=== PATIENT | female | born 1990 | race Hispanic/Latino ===

== ENCOUNTER 2018-12-29 09:48 | Outpatient (CLI) | payer OTHER ==
[2018-12-29 10:25] VITALS: BP 116/53
[2018-12-29] MEDS ORDERED: LACTATED RINGERS 500 ML IV ONE (11:00)
[2018-12-29 11:26] LABS: Bacteria,Urine 1+ /HPF (Negative); Bilirubin,Urine NEG (Negative); Blood,Urine SM (Negative); Color,Urine Yellow (Yellow); Mucus,Urine 2+ /HPF; Protein,Urine <15 mg/dL mg/dL (Negative); Urobilinogen,Urine < 2.0 mg/dL (<2.0)
== END 2018-12-29 10:56 | disposition home or self-care (01) ==
LOC: TRG 09:48
PROVIDERS: ATTEND Obstetrics & Gynecology
DX: O47.02 False labor before 37 completed weeks of gestation, second trimester (principal); Z3A.26 26 weeks gestation of pregnancy
CPT/HCPCS: 59025; 81001

== ENCOUNTER 2019-02-14 18:09 | Outpatient (CLI) | payer OTHER ==
[2019-02-14 18:40] VITALS: BP 119/69
[2019-02-14] MEDS ORDERED: LACTATED RINGERS 1,000 ML IV SCH (19:00)
--- NOTE | 2019-02-14 19:07 | Event Note ---
Date: 02/14/19 pt reports cramping has resolved. no additional bleeding noted when voiding at hospital. spec exam done - cervix appears long/thick/closed, no signs of bleeding old or new. normal white vaginal discharge noted. pt reports feeling relieved, will d/c home if UA is negative for UTI.
[2019-02-14 19:43] LABS: Bacteria,Urine 2+ /HPF (Negative); Bilirubin,Urine NEG (Negative); Blood,Urine SM (Negative); Color,Urine Yellow (Yellow); Mucus,Urine FEW /HPF; Protein,Urine <15 mg/dL mg/dL (Negative); Urobilinogen,Urine < 2.0 mg/dL (<2.0)
== END 2019-02-14 20:39 | disposition home or self-care (01) ==
LOC: TRG 18:09
PROVIDERS: ATTEND Obstetrics & Gynecology
DX: O26.853 Spotting complicating pregnancy, third trimester (principal); O26.893 Other specified pregnancy related conditions, third trimester; R25.2 Cramp and spasm; R10.2 Pelvic and perineal pain; O47.03 False labor before 37 completed weeks of gestation, third trimester; Z3A.33 33 weeks gestation of pregnancy
CPT/HCPCS: 59025; 81001; J7120

== ENCOUNTER 2019-03-24 14:37 | Outpatient (CLI) | payer OTHER ==
[2019-03-24] MEDS ORDERED: LACTATED RINGERS 1,000 ML ONE (15:15)
[2019-03-24 16:41] LABS: Hemoglobin 11.4 gm/dl (10.1-14.3); Mean Corpuscular HGB Conc 35 % (30-34); Mean Corpuscular Volume 90 fl (79-97); Platelet Count 338 K/mm3 (140-440); Red Blood Count 3.69 M/mm3 (3.65-5.03); Red Cell Distribution Width 14.4 % (13.2-15.2)
[2019-03-24 16:46] LABS: Bacteria,Urine 1+ /HPF (Negative); Bilirubin,Urine NEG (Negative); Blood,Urine NEG (Negative); Color,Urine Amber (Yellow); Mucus,Urine 3+ /HPF
[2019-03-24 16:58] LABS: Creatinine,Urine 259.9 mg/dL (0.1-20.0)
[2019-03-24 17:01] LABS: Alanine Aminotransferase 9 units/L (7-56)
[2019-03-24 17:14] LABS: Uric Acid 3.7 mg/dL (3.5-7.6)
[2019-03-24 17:36] VITALS: BP 122/58
== END 2019-03-24 17:40 | disposition home or self-care (01) ==
LOC: TRG 14:37
PROVIDERS: ATTEND Obstetrics & Gynecology
DX: O26.893 Other specified pregnancy related conditions, third trimester (principal); R51 Headache; R42 Dizziness and giddiness; O48.0 Post-term pregnancy; O47.1 False labor at or after 37 completed weeks of gestation; Z3A.40 40 weeks gestation of pregnancy
CPT/HCPCS: 36415; 59025; 81001; 82150; 82565; 82570; 83615; 84450; 84460; 84550; 85027; 86850; 86900; 86901; 87086; 96360; J7120

== ENCOUNTER 2019-03-27 18:00 | Outpatient (CLI) | payer OTHER ==
[2019-03-27] MEDS ORDERED: LACTATED RINGERS 500 ML IV ONE (18:39)
[2019-03-27 19:20] LABS: Hematocrit 34.7 % (30.3-42.9); Hemoglobin 11.6 gm/dl (10.1-14.3); Mean Corpuscular HGB Conc 34 % (30-34); Mean Corpuscular Volume 91 fl (79-97); Platelet Count 317 K/mm3 (140-440); Red Cell Distribution Width 14.6 % (13.2-15.2)
[2019-03-27 19:28] LABS: Alanine Aminotransferase 10 units/L (7-56); Uric Acid 3.3 mg/dL (3.5-7.6)
[2019-03-27 19:29] LABS: Bacteria,Urine 3+ /HPF (Negative); Mucus,Urine 1+ /HPF
[2019-03-27 19:32] VITALS: BP 109/55
[2019-03-27 19:32] LABS: Bilirubin,Urine Negative (Negative); Blood,Urine Negative (Negative); Color,Urine Straw (Yellow); Protein,Urine <15 mg/dL mg/dL (Negative); Urobilinogen,Urine < 2.0 mg/dL (<2.0)
== END 2019-03-27 19:48 | disposition home or self-care (01) ==
LOC: TRG 18:00
PROVIDERS: ATTEND Obstetrics & Gynecology
DX: O13.3 Gestational [pregnancy-induced] hypertension without significant proteinuria, third trimester (principal); Z3A.39 39 weeks gestation of pregnancy
CPT/HCPCS: 36415; 59025; 81001; 82565; 83615; 84450; 84460; 84550; 85027